=== PATIENT | female | born 1955 | race Caucasian/White ===

== ENCOUNTER 2021-07-13 11:55 | Outpatient (CLI) | payer BC | END 2021-07-13 11:56 | disposition home or self-care (01) | LOC: BICMAMMO 11:55 | PROVIDERS: ATTEND Family Medicine | DX: Z12.31 Encounter for screening mammogram for malignant neoplasm of breast (principal); N63.10 Unspecified lump in the right breast, unspecified quadrant | CPT/HCPCS: 77063; 77067 ==

== ENCOUNTER 2021-07-19 08:28 | Outpatient (CLI) | payer BC | END 2021-07-19 08:29 | disposition home or self-care (01) | LOC: BICULT 08:28 | PROVIDERS: ATTEND Family Medicine | DX: N63.10 Unspecified lump in the right breast, unspecified quadrant (principal) ==

== ENCOUNTER 2022-01-08 10:33 | Outpatient (CLI) | payer BC | END 2022-01-08 10:34 | disposition home or self-care (01) | LOC: BICMAMMO 10:33 | PROVIDERS: ATTEND Family Medicine | DX: R92.8 Other abnormal and inconclusive findings on diagnostic imaging of breast (principal); N63.10 Unspecified lump in the right breast, unspecified quadrant | CPT/HCPCS: G0279 ==

== ENCOUNTER 2022-09-24 13:37 | Outpatient (CLI) | payer MEDICARE, OTHER | END 2022-09-24 13:38 | disposition home or self-care (01) | LOC: BICULT 13:37 | PROVIDERS: ATTEND Family Medicine | DX: N63.10 Unspecified lump in the right breast, unspecified quadrant (principal); R92.8 Other abnormal and inconclusive findings on diagnostic imaging of breast | CPT/HCPCS: 76642; 77066; G0279 ==

== ENCOUNTER 2023-09-27 09:41 | Outpatient (CLI) | payer MEDICARE, OTHER | END 2023-09-27 09:42 | disposition home or self-care (01) | LOC: BICMAMMO 09:41 | PROVIDERS: ATTEND Family Medicine | DX: N63.10 Unspecified lump in the right breast, unspecified quadrant (principal) | CPT/HCPCS: 77066; G0279 ==